=== PATIENT | female | born 1945 | race Caucasian/White ===

== ENCOUNTER 2019-01-31 01:46 | Inpatient (IN) | payer MEDICARE ==
[~2019-01-31] VITALS: Ht 172.7 cm; Wt 95.0 kg
[2019-01-31] MEDS ORDERED: ALBUTEROL/IPRATROPIUM 2.5MG/0.5MG, 3 ML ONE (02:25)
[2019-01-31] MEDS ORDERED: MAGNESIUM SULFATE PMX 2GM/50ML 50 ML IVPB ONE (02:30)
[2019-01-31] MEDS ORDERED: methylPREDNISolone SOD SUCC 125 MG/2 ML IVP ONE (02:30)
[2019-01-31] MEDS ORDERED: AZITHROMYCIN 500 MG in SODIUM CHLORIDE 0.9% 250 ML IVPB ONE (02:30)
[2019-01-31] MEDS ORDERED: ALBUTEROL/IPRATROPIUM 2.5MG/0.5MG, 3 ML NPPB SCH (02:30)
[2019-01-31 02:31] LABS: BASOPHILS # (AUTO) 0.11 x10^3/uL (0-0.1); BASOPHILS % (AUTO) 1 % (0-1); EOSINOPHILS # (AUTO) 0.79 x10^3/uL (0-0.4); EOSINOPHILS % (AUTO) 9 % (1-7); LYMPHOCYTES # (AUTO) 0.82 x10^3/uL (1-3.4); LYMPHOCYTES % (AUTO) 10 % (22-44); MD NO; MEAN CORPUSCULAR HEMOGLOBIN 30.8 pg (27.0-34.8); MEAN CORPUSCULAR HGB CONC 34.1 g/dL (32.4-35.8); MEAN CORPUSCULAR VOLUME 90.3 fL (80-100); MEAN PLATELET VOLUME 7.7 fL (7.4-10.4); MONOCYTES # (AUTO) 1.13 x10^3/uL (0.2-0.8); MONOCYTES % (AUTO) 13 % (2-9); NEUTROPHILS % (AUTO) 67 % (42-75); PLATELET COUNT 280 x10^3/uL (130-400); RED BLOOD COUNT 4.51 x10^6/uL (3.82-5.3); RED CELL DISTRIBUTION WIDTH 16.3 % (9.6-15.2)
[2019-01-31] MEDS ORDERED: ALBUTEROL SULFATE 2.5 MG/3 ML ONE (02:34)
[2019-01-31 02:43] LABS: ALBUMIN 3.6 g/dL (3.4-5.0); ANION GAP 8 mmol/L (5-15); CALCIUM 8.5 mg/dL (8.5-10.1); CHLORIDE 106 mmol/L (98-107); CREATININE 1.16 mg/dL (0.55-1.02)
[2019-01-31 02:47] LABS: TROPONIN I < 0.015 ng/mL (0.000-0.045)
[2019-01-31] MEDS ORDERED: ALBUTEROL 0.5%, 20ML NPPBCONT PRN (03:00)
[2019-01-31] MEDS ORDERED: POTASSIUM CHLORIDE 20 MEQ TAB.ER.PRT PO ONE ×2 (03:30→08:30)
[2019-01-31] MEDS ORDERED: methylPREDNISolone SOD SUCC 125 MG/2 ML ONE (03:46)
[2019-01-31] MEDS ORDERED: MAGNESIUM SULFATE PMX 2GM/50ML 50 ML ONE (03:47)
[2019-01-31] MEDS ORDERED: POTASSIUM CHLORIDE 20 MEQ TAB.ER.PRT ONE (03:47)
--- NOTE | 2019-01-31 04:00 | NUR ---
TWO IVs HAVE BEEN STARTED FOR MEDS. PT IN HOSPITAL GOWN. CONTINUAL BREATHING TX GOING.
[2019-01-31] MEDS ORDERED: AMOX1TAB12 PO (04:16)
[2019-01-31] MEDS ORDERED: DOXY100T PO (04:16)
[2019-01-31] MEDS ORDERED: THEO400T2 PO (04:16)
[2019-01-31] MEDS ORDERED: hydrALAzine 20 MG/ML, 1ML IVPush PRN (04:30)
[2019-01-31] MEDS ORDERED: ACETAMINOPHEN 325 MG TABLET PO PRN (04:30)
[2019-01-31] MEDS ORDERED: POLYETHYLENE GLYCOL 17 GM PACKET PO PRN (04:30)
--- NOTE | 2019-01-31 05:09 | NUR ---
REPORT CALLED TO DESEAN MINER.
[2019-01-31 05:42] VITALS: BP 137/87
[2019-01-31] MEDS ORDERED: ALBUTEROL SULFATE 2.5 MG/3 ML NPPB SCH (07:00)
[2019-01-31 07:42] VITALS: BP 151/76
[2019-01-31] MEDS: ENOXAPARIN 40 MG/0.4 ML SQ SCH (07:57)
[2019-01-31] MEDS: SODIUM CHLORIDE 0.9% 1,000 ML IV SCH ×3 (07:57→23:12)
[2019-01-31] MEDS: GUAIFENESIN 200 MG TABLET PO SCH ×4 (07:58→20:12)
[2019-01-31] MEDS: POTASSIUM CHLORIDE 20 MEQ TAB.ER.PRT PO SCH ×2 (07:58→16:06)
[2019-01-31] MEDS ORDERED: methylPREDNISolone SOD SUCC 125 MG/2 ML IVPush SCH (08:30)
[2019-01-31] MEDS ORDERED: LISINOPRIL 10 MG TABLET PO ONE (09:00)
[2019-01-31] MEDS: AMOXICILLIN/CLAV 875-125MG TABLET PO SCH ×2 (09:45→20:12)
[2019-01-31] MEDS: methylPREDNISolone SOD SUCC 125 MG/2 ML IVPush SCH ×3 (09:45→20:12)
[2019-01-31] MEDS: DOXYCYCLINE 100MG TABLET PO SCH (09:45)
[2019-01-31] MEDS: THEOPHYLLINE 100 MG CAP.ER.24H PO SCH ×2 (09:46→20:12)
[2019-01-31] MEDS: ALBUTEROL/IPRATROPIUM 2.5MG/0.5MG, 3 ML NPPB SCH ×4 (11:00→22:30)
[2019-01-31 13:23] VITALS: BP 134/70
[2019-01-31] MEDS ORDERED: FURO10DI PO (15:59)
[2019-01-31] MEDS ORDERED: IRBE300T16 PO (15:59)
[2019-01-31] MEDS ORDERED: [UNRECOGNIZED DRUG - CODE] PO (15:59)
[2019-01-31 18:34] LABS: ANION GAP 5 mmol/L (5-15); CALCIUM 8.8 mg/dL (8.5-10.1); CHLORIDE 109 mmol/L (98-107)
[2019-01-31 20:47] VITALS: BP 149/64
[2019-02-01 02:05] VITALS: BP 143/68
[2019-02-01] MEDS: ALBUTEROL/IPRATROPIUM 2.5MG/0.5MG, 3 ML NPPB SCH ×6 (02:14→22:34)
[2019-02-01] MEDS: methylPREDNISolone SOD SUCC 125 MG/2 ML IVPush SCH ×4 (02:23→22:21)
[2019-02-01] MEDS: GUAIFENESIN 200 MG TABLET PO SCH ×4 (06:04→22:21)
[2019-02-01 07:34] LABS: MEAN CORPUSCULAR HEMOGLOBIN 30.6 pg (27.0-34.8); MEAN CORPUSCULAR HGB CONC 33.9 g/dL (32.4-35.8); MEAN CORPUSCULAR VOLUME 90.2 fL (80-100); MEAN PLATELET VOLUME 7.9 fL (7.4-10.4); PLATELET COUNT 267 x10^3/uL (130-400); RED BLOOD COUNT 4.35 x10^6/uL (3.82-5.3); RED CELL DISTRIBUTION WIDTH 16.3 % (9.6-15.2)
[2019-02-01 07:39] LABS: ALBUMIN 3.4 g/dL (3.4-5.0); ANION GAP 7 mmol/L (5-15); CALCIUM 8.6 mg/dL (8.5-10.1); CHLORIDE 110 mmol/L (98-107)
[2019-02-01 07:44] LABS: ALANINE AMINOTRANSFERASE 20 U/L (12-78); ALKALINE PHOSPHATASE 76 U/L (45-117); BILIRUBIN,TOTAL 0.5 mg/dL (0.2-1.0); CREATININE 1.01 mg/dL (0.55-1.02); TOTAL PROTEIN 6.7 g/dL (6.4-8.2)
[2019-02-01 08:31] LABS: BASOPHILS # (AUTO) 0.05 x10^3/uL (0-0.1); BASOPHILS % (AUTO) 0 % (0-1); EOSINOPHILS % (AUTO) 0 % (1-7); LYMPHOCYTES % (AUTO) 2 % (22-44); MD SCAN; MONOCYTES # (AUTO) 0.25 x10^3/uL (0.2-0.8); MONOCYTES % (AUTO) 2 % (2-9); NEUTROPHILS # (AUTO) 14.08 x10^3/uL (1.8-6.8); NEUTROPHILS % (AUTO) 96 % (42-75)
[2019-02-01] MEDS ORDERED: IRBESARTAN 300 MG TABLET PO SCH (09:00)
[2019-02-01 09:36] VITALS: BP 119/61
[2019-02-01] MEDS: ENOXAPARIN 40 MG/0.4 ML SQ SCH (10:00)
[2019-02-01] MEDS: AMOXICILLIN/CLAV 875-125MG TABLET PO SCH ×2 (10:00→22:22)
[2019-02-01] MEDS: THEOPHYLLINE 100 MG CAP.ER.24H PO SCH ×2 (10:00→22:22)
[2019-02-01] MEDS: POTASSIUM CHLORIDE 20 MEQ TAB.ER.PRT PO SCH ×2 (10:01→16:53)
[2019-02-01] MEDS: DOXYCYCLINE 100MG TABLET PO SCH (10:01)
[2019-02-01] MEDS: FUROSEMIDE 20 MG TABLET PO SCH (10:02)
[2019-02-01 13:24] VITALS: BP 128/72
[2019-02-01] MEDS: SODIUM CHLORIDE 0.9% 1,000 ML IV SCH ×2 (13:30→22:32)
[2019-02-01 20:03] VITALS: BP 149/73
[2019-02-02 00:58] VITALS: BP 155/76
[2019-02-02] MEDS: ALBUTEROL/IPRATROPIUM 2.5MG/0.5MG, 3 ML NPPB SCH ×3 (03:58→11:00)
[2019-02-02] MEDS: GUAIFENESIN 200 MG TABLET PO SCH ×2 (05:08→10:06)
[2019-02-02] MEDS: methylPREDNISolone SOD SUCC 125 MG/2 ML IVPush SCH (05:08)
[2019-02-02 06:08] LABS: MEAN CORPUSCULAR HEMOGLOBIN 30.7 pg (27.0-34.8); MEAN CORPUSCULAR HGB CONC 33.7 g/dL (32.4-35.8); MEAN CORPUSCULAR VOLUME 90.9 fL (80-100); MEAN PLATELET VOLUME 8.4 fL (7.4-10.4); PLATELET COUNT 278 x10^3/uL (130-400); RED BLOOD COUNT 4.37 x10^6/uL (3.82-5.3); RED CELL DISTRIBUTION WIDTH 16.7 % (9.6-15.2)
[2019-02-02 06:15] LABS: ALANINE AMINOTRANSFERASE 23 U/L (12-78); ALBUMIN 3.5 g/dL (3.4-5.0); ANION GAP 7 mmol/L (5-15); CALCIUM 8.6 mg/dL (8.5-10.1); CHLORIDE 112 mmol/L (98-107)
[2019-02-02 06:17] LABS: ALKALINE PHOSPHATASE 68 U/L (45-117); BILIRUBIN,TOTAL 0.5 mg/dL (0.2-1.0); CREATININE 1.14 mg/dL (0.55-1.02); TOTAL PROTEIN 6.7 g/dL (6.4-8.2)
[2019-02-02 06:47] LABS: BASOPHILS # (AUTO) 0.05 x10^3/uL (0-0.1); BASOPHILS % (AUTO) 0 % (0-1); EOSINOPHILS % (AUTO) 0 % (1-7); LYMPHOCYTES # (AUTO) 0.29 x10^3/uL (1-3.4); LYMPHOCYTES % (AUTO) 2 % (22-44); MD SCAN; MONOCYTES # (AUTO) 0.21 x10^3/uL (0.2-0.8); MONOCYTES % (AUTO) 1 % (2-9); NEUTROPHILS # (AUTO) 18.15 x10^3/uL (1.8-6.8); NEUTROPHILS % (AUTO) 97 % (42-75)
[2019-02-02 07:21] VITALS: BP 138/75
[2019-02-02] MEDS ORDERED: POTASSIUM CHLORIDE 20 MEQ TAB.ER.PRT PO SCH (09:00)
[2019-02-02] MEDS ORDERED: AMLODIPINE 5 MG TABLET PO SCH (09:00)
[2019-02-02] MEDS: FUROSEMIDE 20 MG TABLET PO SCH ×2 (09:08→09:26)
[2019-02-02] MEDS: THEOPHYLLINE 100 MG CAP.ER.24H PO SCH (09:09)
[2019-02-02] MEDS: ENOXAPARIN 40 MG/0.4 ML SQ SCH (09:09)
[2019-02-02] MEDS: AMOXICILLIN/CLAV 875-125MG TABLET PO SCH (09:09)
[2019-02-02] MEDS: DOXYCYCLINE 100MG TABLET PO SCH (09:25)
[2019-02-02] MEDS: SODIUM CHLORIDE 0.9% 1,000 ML IV SCH (09:28)
[2019-02-02] MEDS ORDERED: DOXY100T PO (10:08)
[2019-02-02] MEDS ORDERED: TIOT18CA INH (10:08)
[2019-02-02] MEDS ORDERED: AMLO-150 PO (10:08)
[2019-02-02] MEDS ORDERED: OMEP-110 PO (10:08)
[2019-02-02] MEDS ORDERED: PRED20TA PO (10:08)
[2019-02-02] MEDS ORDERED: GUAI200T3 PO (10:08)
[2019-02-02] MEDS ORDERED: POTA20TA6 PO (10:08)
[2019-02-02] MEDS ORDERED: AMOX1TAB12 PO (10:08)
[2019-02-02] MEDS ORDERED: BUDE10.2 INH (10:08)
== END 2019-02-02 11:45 | disposition home or self-care (01) | DRG 871 ==
LOC: ED 02:49 → EDIP 04:03 → 4EST 05:23 → DCLOUNGE 02-02 11:34
PROVIDERS: ADMIT Family Medicine; ATTEND Family Medicine
DX: A41.9 Sepsis, unspecified organism (principal); J18.9 Pneumonia, unspecified organism; N17.0 Acute kidney failure with tubular necrosis; J45.42 Moderate persistent asthma with status asthmaticus; J20.9 Acute bronchitis, unspecified; E87.6 Hypokalemia; I10 Essential (primary) hypertension; K21.9 Gastro-esophageal reflux disease without esophagitis; Y92.89 Other specified places as the place of occurrence of the external cause; T38.0X5A Adverse effect of glucocorticoids and synthetic analogues, initial encounter; R09.02 Hypoxemia; Z90.49 Acquired absence of other specified parts of digestive tract
CPT/HCPCS: 36415; 71045; 80048; 80053; 82040; 83735; 84145; 84484; 85025; 93005; 94640; 94644; 96374; 96375; 99291; G0378; J0456; J1650; J7613; J7620; J2930; J3475; J7030; J7050; J7512

== ENCOUNTER → 2019-04-12 | Outpatient (CLI) | payer MEDICARE ==
[~2019-04-12] MED LIST: AMLO-150 PO; AMOX1TAB12 PO; BUDE10.2 INH; DOXY100T PO; FURO10DI PO; GUAI200T3 PO; IRBE300T16 PO; OMEP-110 PO; POTA20TA6 PO; PRED20TA PO; THEO400T2 PO; TIOT18CA INH; [UNRECOGNIZED DRUG - CODE] PO
[2019-04-12 14:58] LABS: BASOPHILS # (AUTO) 0.08 x10^3/uL (0-0.1); BASOPHILS % (AUTO) 1 % (0-1); EOSINOPHILS # (AUTO) 0.75 x10^3/uL (0-0.4); EOSINOPHILS % (AUTO) 8 % (1-7); LYMPHOCYTES # (AUTO) 1.51 x10^3/uL (1-3.4); LYMPHOCYTES % (AUTO) 17 % (22-44); MD NO; MEAN CORPUSCULAR HEMOGLOBIN 30.2 pg (27.0-34.8); MEAN CORPUSCULAR VOLUME 91.6 fL (80-100); MEAN PLATELET VOLUME 7.5 fL (7.4-10.4); MONOCYTES # (AUTO) 1.14 x10^3/uL (0.2-0.8); MONOCYTES % (AUTO) 13 % (2-9); NEUTROPHILS # (AUTO) 5.52 x10^3/uL (1.8-6.8); NEUTROPHILS % (AUTO) 61 % (42-75); PLATELET COUNT 299 x10^3/uL (130-400); RED CELL DISTRIBUTION WIDTH 16.8 % (9.6-15.2)
[2019-04-12 15:14] LABS: CHLORIDE 101 mmol/L (98-107)
[2019-04-12 15:17] LABS: HEMOGLOBIN A1C 4.8 % (4.2-6.3)
[2019-04-12 15:21] LABS: ALANINE AMINOTRANSFERASE 26 U/L (12-78); ALKALINE PHOSPHATASE 93 U/L (45-117); ANION GAP 12 mmol/L (5-15); BILIRUBIN,TOTAL 1.3 mg/dL (0.2-1.0); CALCIUM 9.6 mg/dL (8.5-10.1); CREATININE 1.09 mg/dL (0.55-1.02); TOTAL PROTEIN 7.3 g/dL (6.4-8.2)
[2019-04-12 15:27] LABS: INTERNATIONAL NORMALIZED RATIO 0.95 (0.93-1.1)
== END | disposition home or self-care (01) ==
LOC: STAR 13:29
PROVIDERS: ATTEND Orthopaedic Surgery
DX: Z01.818 Encounter for other preprocedural examination (principal); M17.12 Unilateral primary osteoarthritis, left knee; R94.31 Abnormal electrocardiogram [ECG] [EKG]
CPT/HCPCS: 36415; 80053; 83036; 85025; 85610; 85730; 87081; 87147; 93005

== ENCOUNTER 2019-04-22 05:50 | Day surgery (SDC) | payer MEDICARE ==
[2019-04-12 14:30] VITALS: BP 116/76
[~2019-04-22] VITALS: Ht 172.7 cm; Wt 88.0 kg
[2019-04-22] MEDS ORDERED: KETOROLAC 60 MG/2 ML ONE (06:40)
[2019-04-22] MEDS ORDERED: TRANEXAMIC ACID 100 MG/ML, 10ML ONE ×2 (06:40)
[2019-04-22] MEDS ORDERED: LACTATED RINGERS 1,000 ML IV SCH (06:40)
[2019-04-22] MEDS ORDERED: EPINEPHRINE 1 MG/ML, 1ML ONE (06:41)
[2019-04-22] MEDS ORDERED: ROPIvacaine/PF 0.5%, 30 ML ONE (06:41)
[2019-04-22] MEDS ORDERED: VANCOMYCIN 1,000 MG ONE (06:41)
[2019-04-22] MEDS ORDERED: SODIUM CHLORIDE 0.9% 50 ML ONE (06:41)
[2019-04-22] MEDS ORDERED: NS + 20MEQ KCL 1,000 ML IV SCH (06:43)
[2019-04-22] MEDS ORDERED: ONDANSETRON 4 MG TABLET PO PRN (07:00)
[2019-04-22] MEDS ORDERED: OXYcodone IR 5MG TABLET PO PRN (07:00)
[2019-04-22] MEDS ORDERED: ZOLPIDEM 5MG TABLET PO PRN (07:00)
[2019-04-22] MEDS ORDERED: CEFAZOLIN PMX 2GM/50ML 50 ML IVPB SCH (07:00)
[2019-04-22] MEDS ORDERED: ACETAMINOPHEN 650 MG/20.3 ML UDC PO PRN (07:00)
[2019-04-22] MEDS ORDERED: SENNA/DOCUSATE TABLET PO PRN (07:00)
[2019-04-22] MEDS ORDERED: SCOPOLAMINE PATCH, 1.5MG PATCH.TD72 TD ONE ×2 (07:00→11:35)
[2019-04-22] MEDS ORDERED: MAGNESIUM HYDROXIDE 8%, 30ML UDC PO PRN (07:00)
[2019-04-22] MEDS ORDERED: HYDROmorphone 1 MG/ML, 1ML INJ IV PRN (07:00)
[2019-04-22] MEDS ORDERED: DIPHENHYDRAMINE 25 MG CAPSULE PO PRN (07:00)
[2019-04-22] MEDS ORDERED: ONDANSETRON 2MG/ML, 2ML IV PRN ×2 (07:00→08:00)
[2019-04-22] MEDS ORDERED: BISACODYL 10 MG SUPP PR PRN (07:00)
[2019-04-22] MEDS ORDERED: HYDROcodone/APAP 5/325 TABLET PO PRN (07:00)
[2019-04-22] MEDS ORDERED: FENTANYL PF 250 MCG/5ML ONE ×2 (07:09→08:22)
[2019-04-22] MEDS ORDERED: MIDAZOLAM 1 MG/ML, 2ML ONE (07:09)
[2019-04-22] MEDS ORDERED: GABAPENTIN 300 MG CAPSULE ONE (07:09)
[2019-04-22] MEDS ORDERED: ACETAMINOPHEN 500 MG TABLET ONE (07:09)
[2019-04-22] MEDS ORDERED: ROPIvacaine/PF 0.2%, 20 ML ONE (07:16)
[2019-04-22] MEDS ORDERED: PHENYLEPHRINE 10 MG/ML ONE (07:16)
[2019-04-22] MEDS ORDERED: NEOSTIGMINE 1 MG/ML, 10ML ONE (07:18)
[2019-04-22] MEDS ORDERED: ROCURONIUM 10MG/ML,5ML ONE (07:18)
[2019-04-22] MEDS ORDERED: DEXAMETHASONE 4 MG/ML, 1ML ONE (07:18)
[2019-04-22] MEDS ORDERED: PROPOFOL 10 MG/ML, 20ML ONE (07:18)
[2019-04-22] MEDS ORDERED: CEFAZOLIN 1,000 MG ONE (07:18)
[2019-04-22] MEDS ORDERED: ONDANSETRON 2MG/ML, 2ML ONE (07:18)
[2019-04-22] MEDS ORDERED: GLYCOPYRROLATE 0.2MG/1ML, 5ML ONE (07:18)
[2019-04-22] MEDS ORDERED: ACETAMINOPHEN 500 MG TABLET PO ONE (07:30)
[2019-04-22] MEDS ORDERED: GABAPENTIN 300 MG CAPSULE PO ONE (07:30)
[2019-04-22] MEDS ORDERED: HYDROCORTISONE 100 MG INJ. ONE (07:43)
[2019-04-22] MEDS ORDERED: MORPHINE SULFATE 4 MG/ML, 1ML IVPush PRN (08:00)
[2019-04-22] MEDS ORDERED: ALBUTEROL/IPRATROPIUM 2.5MG/0.5MG, 3 ML NPPB PRN (08:00)
[2019-04-22] MEDS ORDERED: PROMETHAZINE 25 MG/ML, 1ML IM PRN ×2 (08:00)
[2019-04-22] MEDS ORDERED: hydrALAzine 20 MG/ML, 1ML IV PRN (08:00)
[2019-04-22] MEDS ORDERED: OXYcodone 5 MG/5 ML ORAL.SOL UDC PO PRN (08:00)
[2019-04-22] MEDS ORDERED: ALBUTEROL SULFATE 2.5 MG/3 ML NPPB PRN (08:00)
[2019-04-22] MEDS ORDERED: PROMETHAZINE 12.5 MG SUPP PR PRN (08:00)
[2019-04-22] MEDS ORDERED: PROMETHAZINE 25 MG/ML, 1ML IV PRN (08:00)
[2019-04-22] MEDS ORDERED: FENTANYL PF 100 MCG/2ML IV PRN (08:00)
[2019-04-22] MEDS ORDERED: LABETALOL 5MG/ML, 20ML IV PRN (08:00)
[2019-04-22] MEDS ORDERED: HYDROmorphone 2 MG/ML, 1ML IVPush PRN (08:00)
[2019-04-22] MEDS ORDERED: PROMETHAZINE 25 MG SUPP PR PRN (08:00)
[2019-04-22] MEDS ORDERED: MEPERIDINE/PF 25MG/0.5ML IVPush PRN (08:00)
[2019-04-22] MEDS ORDERED: ONDANSETRON ODT 8 MG PO PRN (08:00)
[2019-04-22] MEDS ORDERED: hydrALAzine 20 MG/ML, 1ML ONE (08:25)
[2019-04-22] MEDS ORDERED: AMLODIPINE 5 MG TABLET PO SCH (09:00)
[2019-04-22] MEDS ORDERED: THEOPHYLLINE 100 MG CAP.ER.24H PO SCH (09:00)
[2019-04-22] MEDS ORDERED: DILTIAZEM HCL 100 MG PO SCH (09:00)
[2019-04-22] MEDS ORDERED: TEMPLATE NON-FORMULARY MED. (Budesonide/Formoterol Fumarate (Symbicort 160-4.5 Mcg Inhaler INH SCH (09:00)
[2019-04-22] MEDS ORDERED: DOCUSATE 100 MG CAPSULE PO SCH (09:00)
[2019-04-22] MEDS ORDERED: TEMPLATE NON-FORMULARY MED. (Tiotropium Bromide** (Spiriva**) 18 MCG) INH SCH (09:00)
[2019-04-22] MEDS ORDERED: ALBUTEROL HFA 90 MCG/SPRAY ONE (09:07)
[2019-04-22] MEDS ORDERED: OXYcodone 5 MG/5 ML ORAL.SOL UDC ONE (09:49)
[2019-04-22] MEDS ORDERED: FENTANYL PF 100 MCG/2ML ONE (10:06)
[2019-04-22] MEDS ORDERED: ALBUTEROL SULFATE 2.5 MG/3 ML HHN SCH (11:00)
[2019-04-22] MEDS ORDERED: ALBUTEROL/IPRATROPIUM 2.5MG/0.5MG, 3 ML HHN SCH (11:30)
[2019-04-22] MEDS ORDERED: DILTIAZEM MC SCH (11:30)
[2019-04-22] MEDS ORDERED: BUDESONIDE 0.5 MG/2 ML INHA HHN SCH ×2 (11:30)
[2019-04-22 14:45] VITALS: BP 117/55
[2019-04-22] MEDS ORDERED: OXYC5CAP2 PO (16:37)
[2019-04-22] MEDS ORDERED: TRAM50TA2 PO (16:38)
[2019-04-22] MEDS ORDERED: MELO7.5T5 PO (16:42)
[2019-04-22 17:10] VITALS: BP 118/65
[2019-04-22] MEDS ORDERED: ASPIRIN 81 MG TABLET EC PO SCH (18:00)
[2019-04-23] MEDS ORDERED: DEXAMETHASONE 4 MG/ML, 1ML IVPush SCH (06:00)
[2019-04-23] MEDS ORDERED: DILTIAZEM 120 MG CAP.ER.24H PO SCH (09:00)
[2019-04-23] MEDS ORDERED: DILTIAZEM 120 MG TABLET PO SCH (09:00)
== END 2019-04-22 17:29 | disposition home or self-care (01) ==
LOC: OUT 05:50 → 4NOR 10:28 → OUT 17:29
PROVIDERS: ATTEND Orthopaedic Surgery
DX: M17.12 Unilateral primary osteoarthritis, left knee (principal); I10 Essential (primary) hypertension; I48.91 Unspecified atrial fibrillation; J45.909 Unspecified asthma, uncomplicated; Z87.891 Personal history of nicotine dependence; Z72.89 Other problems related to lifestyle
CPT/HCPCS: 27447; 36415; 64447; 80047; 97161; C1713; C1776; J0171; J0360; J0690; J1100; J1720; J1885; J2250; J2370; J2405; J2704; J2710; J2795; J3010; J3370; J3480; J7120; G0378

== ENCOUNTER → 2019-05-20 | Outpatient (CLI) | payer MEDICARE ==
[~2019-05-20] MED LIST changes: +MELO7.5T5 PO; +OMNIPAQUE 350 MG/ML, 100ML BOTTLE ONE; +OXYC5CAP2 PO; +TRAM50TA2 PO
== END | disposition home or self-care (01) ==
LOC: RAD 13:09
PROVIDERS: ATTEND Family Medicine
DX: R06.02 Shortness of breath (principal); Z96.652 Presence of left artificial knee joint; Z90.49 Acquired absence of other specified parts of digestive tract
CPT/HCPCS: 71275; Q9967

== ENCOUNTER 2019-06-23 09:31 | Outpatient (CLI) | payer MEDICARE ==
[~2019-06-23 09:31] MED LIST changes: -GUAI200T3 PO; +GUAI200T37 PO; -OMNIPAQUE 350 MG/ML, 100ML BOTTLE ONE
[2019-06-23 10:07] LABS: BASOPHILS # (AUTO) 0.05 x10^3/uL (0-0.1); BASOPHILS % (AUTO) 1 % (0-1); EOSINOPHILS # (AUTO) 0.94 x10^3/uL (0-0.4); EOSINOPHILS % (AUTO) 9 % (1-7); LYMPHOCYTES # (AUTO) 1.67 x10^3/uL (1-3.4); LYMPHOCYTES % (AUTO) 17 % (22-44); MD NO; MEAN CORPUSCULAR HEMOGLOBIN 28.7 pg (27.0-34.8); MEAN CORPUSCULAR HGB CONC 32.5 g/dL (32.4-35.8); MEAN CORPUSCULAR VOLUME 88.2 fL (80-100); MEAN PLATELET VOLUME 7.8 fL (7.4-10.4); MONOCYTES # (AUTO) 0.86 x10^3/uL (0.2-0.8); MONOCYTES % (AUTO) 9 % (2-9); NEUTROPHILS % (AUTO) 65 % (42-75); PLATELET COUNT 316 x10^3/uL (130-400); RED BLOOD COUNT 4.89 x10^6/uL (3.82-5.3); RED CELL DISTRIBUTION WIDTH 16.2 % (9.6-15.2)
[2019-06-27] MEDS ORDERED: TRIA1TAB3 PO (14:10)
[2019-06-27] MEDS ORDERED: FURO20TA3 PO (14:10)
[2019-06-27] MEDS ORDERED: DOXY100T PO (14:10)
[2019-06-27] MEDS ORDERED: IRBE150T25 PO (14:10)
[2019-06-27] MEDS ORDERED: AMOX1TAB64 PO (14:10)
[2019-06-27] MEDS ORDERED: OMEP40CA6 PO (14:10)
[2019-06-27] MEDS ORDERED: DILT120T3 PO (14:10)
[2019-06-27] MEDS ORDERED: HYDROCHLOROTH12.5 MG PO (14:10)
[2019-06-27] MEDS ORDERED: HYDR-36 PO (14:11)
[2019-06-27] MEDS ORDERED: IBUP-1223 PO (14:11)
[2019-06-27] MEDS ORDERED: DICL50TA2 PO (14:11)
[2019-06-27] MEDS ORDERED: NAPR-685 PO (14:11)
[2019-06-27] MEDS ORDERED: TIOT18CA INH (14:44)
[2019-06-27] MEDS ORDERED: MONT10TA6 PO (14:44)
[2019-06-27] MEDS ORDERED: ALBU1.25 NEB (14:44)
[2019-06-27] MEDS ORDERED: ALBU8.5H8 INH (14:44)
[2019-06-27] MEDS ORDERED: PRED50TA PO (14:44)
[2019-07-22] MEDS ORDERED: AMLODIPINE PO (08:23)
== END 2019-06-23 23:59 | disposition home or self-care (01) ==
LOC: LAB 09:31
PROVIDERS: ATTEND Internal Medicine
DX: G47.36 Sleep related hypoventilation in conditions classified elsewhere (principal); I10 Essential (primary) hypertension; J45.50 Severe persistent asthma, uncomplicated; R91.8 Other nonspecific abnormal finding of lung field
CPT/HCPCS: 36415; 82103; 82784; 82785; 85025; 86003; 86225; 86235

== ENCOUNTER 2019-06-29 10:23 | Day surgery (SDC) | payer MEDICARE ==
[~2019-06-29] VITALS: Ht 170.2 cm; Wt 86.4 kg
[2019-06-29 11:08] VITALS: BP 172/76
== END 2019-06-29 16:00 | disposition home or self-care (01) ==
LOC: OUT 10:23
PROVIDERS: ATTEND Internal Medicine
DX: J45.50 Severe persistent asthma, uncomplicated (principal); I10 Essential (primary) hypertension; Z87.891 Personal history of nicotine dependence; Z96.652 Presence of left artificial knee joint
CPT/HCPCS: 31660; 36415; 80053; 93005; 94640; 99152; 99153; C1886; J1200; J2250; J3010

== ENCOUNTER 2020-08-29 17:03 | Observation (INO) | payer MEDICARE ==
[~2020-08-29] VITALS: Ht 170.2 cm; Wt 94.9 kg
[~2020-08-29 17:03] MED LIST changes: +ALBU1.25 NEB; +ALBU8.5H8 INH; +AMLODIPINE PO; +AMOX1TAB64 PO; +DICL50TA2 PO; +DILT120T3 PO; +FURO20TA3 PO; +HYDR-3246 PO; +HYDROCHLOROTH12.5 MG PO; +IBUP-1223 PO; +IRBE150T9 PO; -IRBE300T16 PO; +IRBE300T8 PO; +MONT10TA6 PO; +NAPR-685 PO; +OMEP40CA42 PO; +PRED50TA PO; +TRIA1TAB3 PO
--- NOTE | 2020-08-29 17:16 | NUR ---
BONUS CLERK: PT TOOK ASA TODAY
--- NOTE | 2020-08-29 17:44 | NUR ---
PT TO ROOM FROM LOBBY AT THIS TIME. PT WITH C/O CP INTERMITTANT FOR THE PAST FEW MONTHS. PT STATES IT COMES AND GOES AND DOES NOT CORRESPOND WITH ACTIVITY. PT STATES SLIGHTLY SOB WITH PAINS. NO CP AT THIS TIME. PT WENT TO PCP HAD AN EKG DONE AND WAS TOLD TO COME TO ER. PT TO CONT PULSE OX, BP, CARD MONITOR, AWAITING MARIO CHURCHILL
[2020-08-29 17:47] LABS: BASOPHILS % (AUTO) 1 % (0-1); EOSINOPHILS % (AUTO) 6 % (1-7); LYMPHOCYTES % (AUTO) 14 % (22-44); MEAN CORPUSCULAR HEMOGLOBIN 29.3 pg (27.0-34.8); MEAN CORPUSCULAR HGB CONC 33.1 g/dL (32.4-35.8); MEAN PLATELET VOLUME 7.5 fL (7.4-10.4); MONOCYTES % (AUTO) 10 % (2-9); NEUTROPHILS % (AUTO) 70 % (42-75); PLATELET COUNT 352 x10^3/uL (130-400); RED CELL DISTRIBUTION WIDTH 16.4 % (9.6-15.2)
[2020-08-29 17:55] LABS: MD NO
[2020-08-29 17:58] LABS: ALANINE AMINOTRANSFERASE 20 U/L (12-78); ALBUMIN 3.9 g/dL (3.4-5.0); ANION GAP 7 mmol/L (5-15); CALCIUM 9.2 mg/dL (8.5-10.1); CHLORIDE 106 mmol/L (98-107); CREATININE 1.32 mg/dL (0.55-1.02)
[2020-08-29 18:02] LABS: ALKALINE PHOSPHATASE 105 U/L (45-117); BILIRUBIN,TOTAL 0.9 mg/dL (0.2-1.0); TOTAL PROTEIN 7.1 g/dL (6.4-8.2); TROPONIN I < 0.015 ng/mL (0.000-0.045)
--- NOTE | 2020-08-29 18:32 | NUR ---
ERMD IN TO UPDATE PT ON POC.
[2020-08-29] MEDS ORDERED: HYDR25TA6 PO (19:19)
[2020-08-29] MEDS ORDERED: POTASSIUM CHLORIDE 20 MEQ PACKET ONE (19:22)
[2020-08-29] MEDS ORDERED: ALBUTEROL HFA 90 MCG/SPRAY INH PRN (19:30)
[2020-08-29] MEDS ORDERED: ACETAMINOPHEN 325 MG TABLET PO PRN (19:30)
[2020-08-29] MEDS ORDERED: POTASSIUM CHLORIDE 10% 40 MEQ/30 ML UDC PO ONE (19:30)
[2020-08-29] MEDS ORDERED: NITROGLYCERIN 0.4 MG BOTTLE (25 TABS) SL PRN (19:30)
[2020-08-29] MEDS ORDERED: morphine SULFATE 10 MG/ML, 1ML IVPush PRN (19:30)
[2020-08-29] MEDS ORDERED: SODIUM CHLORIDE FLUSH 10ML SYR IVF PRN (19:30)
[2020-08-29] MEDS ORDERED: ONDANSETRON ODT 4 MG PO PRN (19:30)
[2020-08-29] MEDS ORDERED: BISACODYL 10 MG SUPP PR PRN (19:30)
[2020-08-29] MEDS ORDERED: POLYETHYLENE GLYCOL 17 GM PACKET PO PRN (19:30)
--- NOTE | 2020-08-29 20:03 | NUR ---
FIRST ATTEMPT TO CALL REPORT.
--- NOTE | 2020-08-29 20:12 | NUR ---
REPORT TO ISIDRA MURILLO.
[2020-08-29] MEDS ORDERED: TEMPLATE NON-FORMULARY MED. (Albuterol Sulfate (Albuterol Sulfate**) 1 VIAL) NEB SCH (21:00)
[2020-08-29] MEDS: SODIUM CHLORIDE FLUSH 10ML SYR IVF SCH (21:00)
[2020-08-29] MEDS: IRBESARTAN 150 MG TABLET PO SCH (21:39)
[2020-08-29] MEDS: AMLODIPINE 2.5 MG TABLET PO SCH (21:39)
[2020-08-29 22:31] VITALS: BP 176/83
[2020-08-29 22:48] VITALS: BP 122/62
[2020-08-29 23:46] LABS: TROPONIN I 0.016 ng/mL (0.000-0.045)
[2020-08-30 01:09] VITALS: BP 134/65
[2020-08-30 06:12] LABS: ANION GAP 5 mmol/L (5-15); CALCIUM 8.9 mg/dL (8.5-10.1); CHLORIDE 109 mmol/L (98-107)
[2020-08-30] MEDS: ASPIRIN 81 MG TABLET EC PO SCH (06:12)
[2020-08-30 06:18] LABS: BASOPHILS % (AUTO) 1 % (0-1); CHOL/HDL RATIO 2.2; CHOLESTEROL, TOTAL 201 mg/dL (140-239); CREATININE 1.14 mg/dL (0.55-1.02); EOSINOPHILS % (AUTO) 9 % (1-7); HDL CHOL % 46 % (28-40); HDL CHOLESTEROL (DIRECT) 93 mg/dL (40-60); LDL CHOLESTEROL,CALCULATED 81 mg/dL (54-169); LDL/HDL RATIO 0.9 (0.5-3.0); LYMPHOCYTES % (AUTO) 16 % (22-44); MEAN CORPUSCULAR HEMOGLOBIN 29.7 pg (27.0-34.8); MEAN CORPUSCULAR HGB CONC 33.3 g/dL (32.4-35.8); MONOCYTES % (AUTO) 13 % (2-9); NEUTROPHILS % (AUTO) 60 % (42-75); PLATELET COUNT 302 x10^3/uL (130-400); RED BLOOD COUNT 4.47 x10^6/uL (3.82-5.3); RED CELL DISTRIBUTION WIDTH 16.6 % (9.6-15.2); TRIGLYCERIDES 133 mg/dL (50-200); TROPONIN I 0.025 ng/mL (0.000-0.045); VLDL CHOLESTEROL 27 mg/dL (0-25)
[2020-08-30 06:33] LABS: MD NO
[2020-08-30] MEDS ORDERED: POTASSIUM CHLORIDE 20 MEQ TAB.ER.PRT PO ONE (07:00)
[2020-08-30] MEDS: TIOTROPIUM BROMIDE 18 MCG/INH INH SCH (09:00)
[2020-08-30] MEDS: SENNA/DOCUSATE TABLET PO SCH (09:00)
[2020-08-30] MEDS: SODIUM CHLORIDE FLUSH 10ML SYR IVF SCH ×2 (09:00→21:02)
[2020-08-30] MEDS: MONTELUKAST 10 MG TABLET PO SCH (09:00)
[2020-08-30] MEDS ORDERED: REGADENOSON 0.4 MG/5 ML SYRINGE ONE (09:18)
[2020-08-30 10:47] VITALS: BP 165/67
[2020-08-30] MEDS: HYDROCHLOROTHIAZIDE 12.5 MG CAPSULE PO SCH (10:53)
[2020-08-30] MEDS: IRBESARTAN 150 MG TABLET PO SCH ×2 (10:54→21:02)
[2020-08-30] MEDS: AMLODIPINE 2.5 MG TABLET PO SCH ×2 (10:54→21:02)
[2020-08-30 15:15] VITALS: BP 180/71
[2020-08-30 15:55] VITALS: BP 176/77
[2020-08-30] MEDS ORDERED: OMEP20TA62 PO (16:50)
[2020-08-30] MEDS ORDERED: POTA20PA25 PO (16:50)
[2020-08-30] MEDS ORDERED: AMLODIPINE PO (16:50)
[2020-08-30 16:58] VITALS: BP_SYST 186; BP_SYST 196; BP_DIAS 76; BP_DIAS 77
[2020-08-30] MEDS ORDERED: AMLODIPINE 5 MG TABLET PO ONE (17:30)
[2020-08-30 20:56] VITALS: BP 161/73
[2020-08-30] MEDS ORDERED: MELATONIN 5 MG TABLET PO PRN (21:30)
[2020-08-31 01:43] VITALS: BP 135/58
[2020-08-31] MEDS: ASPIRIN 81 MG TABLET EC PO SCH (05:46)
[2020-08-31 06:59] VITALS: BP_SYST 151; BP_SYST 177; BP_DIAS 71; BP_DIAS 72
[2020-08-31 08:14] LABS: CALCIUM 9.1 mg/dL (8.5-10.1); CREATININE 1.11 mg/dL (0.55-1.02)
[2020-08-31 08:27] LABS: ANION GAP 6 mmol/L (5-15); CHLORIDE 106 mmol/L (98-107)
[2020-08-31] MEDS: HYDROCHLOROTHIAZIDE 12.5 MG CAPSULE PO SCH (08:49)
[2020-08-31] MEDS: IRBESARTAN 150 MG TABLET PO SCH (08:49)
[2020-08-31] MEDS: TIOTROPIUM BROMIDE 18 MCG/INH INH SCH (08:49)
[2020-08-31] MEDS: AMLODIPINE 2.5 MG TABLET PO SCH (08:49)
[2020-08-31] MEDS: SENNA/DOCUSATE TABLET PO SCH (08:50)
[2020-08-31] MEDS: MONTELUKAST 10 MG TABLET PO SCH (08:50)
[2020-08-31] MEDS: SODIUM CHLORIDE FLUSH 10ML SYR IVF SCH (08:50)
[2020-08-31] MEDS ORDERED: POTASSIUM CHLORIDE 20 MEQ TAB.ER.PRT PO ONE (09:00)
[2020-08-31] MEDS ORDERED: POTASSIUM CHLORIDE 20 MEQ TAB.ER.PRT ONE (09:01)
[2020-08-31 10:57] VITALS: BP 134/73
[2020-08-31 13:50] VITALS: BP 128/66
== END 2020-08-31 16:26 | disposition home or self-care (01) ==
LOC: ED 20:23 → EDIP 20:59 → INTOOBSV 20:59 → 5SO 21:01
PROVIDERS: ADMIT Family Medicine; ATTEND Internal Medicine
DX: R07.89 Other chest pain (principal); K21.9 Gastro-esophageal reflux disease without esophagitis; E87.6 Hypokalemia; K44.9 Diaphragmatic hernia without obstruction or gangrene; J45.909 Unspecified asthma, uncomplicated; I20.0 Unstable angina; D84.9 Immunodeficiency, unspecified; I10 Essential (primary) hypertension; Z79.899 Other long term (current) drug therapy; Z87.891 Personal history of nicotine dependence
CPT/HCPCS: 36415; 71045; 78452; 80048; 80053; 80061; 83735; 84132; 84484; 85025; 93005; 93017; 99285; A9502; C9898; G0378; J2785

== ENCOUNTER → 2021-01-02 | Outpatient (CLI) | payer MEDICARE ==
[~2021-01-02] MED LIST changes: +ACET325T26 PO; +APIX5TAB PO; +HYDR-3237 PO; -HYDR-3246 PO; +HYDR-3248 PO; +HYDR25TA6 PO; +OMEP20TA62 PO; +PANT40TA6 PO; +POTA20PA25 PO; +PRED10TA PO; +SOTA80TA18 PO
[2021-01-02 15:41] LABS: ANION GAP 8 mmol/L (5-15); CHLORIDE 107 mmol/L (98-107)
[2021-01-02 15:46] LABS: CREATININE 1.75 mg/dL (0.55-1.02)
== END | disposition home or self-care (01) ==
LOC: CVU 15:07
PROVIDERS: ATTEND Internal Medicine Cardiovascular Disease
DX: I08.1 Rheumatic disorders of both mitral and tricuspid valves (principal); I42.9 Cardiomyopathy, unspecified; I10 Essential (primary) hypertension; I16.0 Hypertensive urgency
CPT/HCPCS: 36415; 80048; 83880; 93306